=== PATIENT | female | born 1950 | race Caucasian/White ===

== ENCOUNTER → 2017-09-17 | Outpatient (CLI) | payer OTHER ==
[~2017-09-17] MED LIST: ALDACTONE25 MG PO; ALLERGY MEDICAT25 MG PO; AMPYRA10 MG PO; APAP500 PO; ARICEPT 5 MG TAB5 MG PO; CEPACOL SORE T1 EAC7 MM; DEXEDRINE10 MG PO; DIFLUCAN100 MG PO; EFFEXOR XR150 MG PO; EFFEXOR XR75 MG PO; KEPPRA 500 MG500 M1 PO; LEVOTHYROXIN0.075 MG PO; LIORESAL 10 MG10 MG PO; LOSARTAN POTAS100 MG PO; RECLAST 55 MG/1002 IVPB; VENLAFAXIN75 MG/1 T2 PO; ZOCOR20 MG PO; ZOSYN 3.373.375 GM/1 IV; ZOSYN 4.5 GRAM4.5 GM IV
== END ==
LOC: HYPER 06:42
DX: L89.893 Pressure ulcer of other site, stage 3 (principal); L89.522 Pressure ulcer of left ankle, stage 2; L89.610 Pressure ulcer of right heel, unstageable; I10 Essential (primary) hypertension; G35 Multiple sclerosis; M81.0 Age-related osteoporosis without current pathological fracture; F32.9 Major depressive disorder, single episode, unspecified; Z87.891 Personal history of nicotine dependence; Z72.89 Other problems related to lifestyle

== ENCOUNTER → 2017-10-08 | Outpatient (CLI) | payer OTHER | LOC: HYPER 06:41 | DX: L89.893 Pressure ulcer of other site, stage 3 (principal); L89.610 Pressure ulcer of right heel, unstageable; G35 Multiple sclerosis; I10 Essential (primary) hypertension; E66.9 Obesity, unspecified; M81.0 Age-related osteoporosis without current pathological fracture; F32.9 Major depressive disorder, single episode, unspecified; Z87.891 Personal history of nicotine dependence; Z72.89 Other problems related to lifestyle; Z68.24 Body mass index [BMI] 24.0-24.9, adult ==

== ENCOUNTER → 2017-11-12 | Outpatient (CLI) | payer OTHER | LOC: HYPER 11-05 16:43 | DX: L89.522 Pressure ulcer of left ankle, stage 2 (principal); L89.610 Pressure ulcer of right heel, unstageable; G35 Multiple sclerosis; I10 Essential (primary) hypertension; F32.9 Major depressive disorder, single episode, unspecified; E66.9 Obesity, unspecified; Z68.24 Body mass index [BMI] 24.0-24.9, adult; Z87.891 Personal history of nicotine dependence; Z72.89 Other problems related to lifestyle ==

== ENCOUNTER → 2017-12-10 | Outpatient (CLI) | payer OTHER ==
[~2017-12-10] MED LIST changes: -DIFLUCAN100 MG PO; -KEPPRA 500 MG500 M1 PO; -ZOSYN 3.373.375 GM/1 IV; -ZOSYN 4.5 GRAM4.5 GM IV
== END ==
LOC: HYPER 06:43
DX: L89.313 Pressure ulcer of right buttock, stage 3 (principal); L89.522 Pressure ulcer of left ankle, stage 2; L89.610 Pressure ulcer of right heel, unstageable; I10 Essential (primary) hypertension; F32.9 Major depressive disorder, single episode, unspecified; E66.9 Obesity, unspecified; Z68.24 Body mass index [BMI] 24.0-24.9, adult; Z87.891 Personal history of nicotine dependence

== ENCOUNTER → 2018-01-07 | Outpatient (CLI) | payer OTHER | LOC: HYPER 06:55 | DX: L89.313 Pressure ulcer of right buttock, stage 3 (principal); L89.521 Pressure ulcer of left ankle, stage 1; I10 Essential (primary) hypertension; E66.9 Obesity, unspecified; M81.0 Age-related osteoporosis without current pathological fracture; G35 Multiple sclerosis; F32.9 Major depressive disorder, single episode, unspecified; Z87.891 Personal history of nicotine dependence; Z68.24 Body mass index [BMI] 24.0-24.9, adult ==

== ENCOUNTER → 2018-02-26 | Outpatient (CLI) | payer OTHER | LOC: HYPER 06:50 | DX: L89.523 Pressure ulcer of left ankle, stage 3 (principal); L89.313 Pressure ulcer of right buttock, stage 3; E66.9 Obesity, unspecified; M81.0 Age-related osteoporosis without current pathological fracture; G35 Multiple sclerosis; F32.9 Major depressive disorder, single episode, unspecified; Z87.891 Personal history of nicotine dependence; Z68.24 Body mass index [BMI] 24.0-24.9, adult ==

== ENCOUNTER → 2018-03-26 | Outpatient (CLI) | payer OTHER | LOC: HYPER 06:40 | DX: L89.323 Pressure ulcer of left buttock, stage 3 (principal); L89.523 Pressure ulcer of left ankle, stage 3; I10 Essential (primary) hypertension; G35 Multiple sclerosis; E66.9 Obesity, unspecified; M81.0 Age-related osteoporosis without current pathological fracture; F32.9 Major depressive disorder, single episode, unspecified; Z87.891 Personal history of nicotine dependence; Z68.24 Body mass index [BMI] 24.0-24.9, adult ==

== ENCOUNTER → 2018-04-14 | Outpatient (CLI) | payer OTHER | LOC: HYPER 06:36 | DX: L89.523 Pressure ulcer of left ankle, stage 3 (principal); L89.323 Pressure ulcer of left buttock, stage 3; L89.152 Pressure ulcer of sacral region, stage 2; I10 Essential (primary) hypertension; G35 Multiple sclerosis; E66.9 Obesity, unspecified; M81.0 Age-related osteoporosis without current pathological fracture; F32.9 Major depressive disorder, single episode, unspecified; Z68.24 Body mass index [BMI] 24.0-24.9, adult; Z87.891 Personal history of nicotine dependence ==

== ENCOUNTER → 2018-06-03 | Outpatient (CLI) | payer OTHER ==
[~2018-06-03] MED LIST changes: +DIFLUCAN100 MG PO; +KEPPRA 500 MG500 M1 PO; +ZOSYN 3.373.375 GM/1 IV; +ZOSYN 4.5 GRAM4.5 GM IV
[2018-06-03 16:40] LABS: ABSOLUTE NEUTROPHILS 13.5 thou/uL (1.4-8.2); BASOPHILS 0.7 % (0.0-2.0); EOSINOPHILS 3.5 % (0.0-3.0); HEMATOCRIT 27.2 % (37.0-47.0); HEMOGLOBIN 9.3 gm/dL (12.0-15.0); MCH 32.7 pg (26.0-34.0); MCHC 34.4 g/dL (28.0-37.0); MONOCYTES 7.4 % (1.0-8.0); PLATELET COUNT 674 thou/uL (150-400); POLYS 82.4 % (36.0-66.0); RBC 2.86 mil/uL (4.20-5.00); RDW 13.7 % (10.5-14.5); WBC 16.4 thou/uL (4.0-11.0)
[2018-06-03 16:53] LABS: ALBUMIN 2.3 g/dL (3.4-5.0); CALCIUM 9.4 mg/dL (8.5-10.1); CREATININE 0.6 mg/dL (0.6-1.0); POTASSIUM 3.8 mmol/L (3.5-5.1); TOTAL BILIRUBIN 0.3 mg/dL (<0.1-1.0); TOTAL PROTEIN 7.6 g/dL (6.4-8.2)
== END ==
LOC: HYPER 00:25
PROVIDERS: Specialist
DX: L89.523 Pressure ulcer of left ankle, stage 3 (principal); L89.623 Pressure ulcer of left heel, stage 3; L89.324 Pressure ulcer of left buttock, stage 4; L89.893 Pressure ulcer of other site, stage 3; R21 Rash and other nonspecific skin eruption; B37.2 Candidiasis of skin and nail; E66.9 Obesity, unspecified; G35 Multiple sclerosis; G62.9 Polyneuropathy, unspecified; I10 Essential (primary) hypertension; M81.0 Age-related osteoporosis without current pathological fracture; F32.9 Major depressive disorder, single episode, unspecified; Z87.891 Personal history of nicotine dependence; Z68.24 Body mass index [BMI] 24.0-24.9, adult

== ENCOUNTER → 2018-06-10 | Outpatient (CLI) | payer OTHER ==
[2018-06-10 13:24] LABS: CREATININE 0.6 mg/dL (0.6-1.0)
== END ==
LOC: CAT 10:46
PROVIDERS: Emergency Medicine
DX: L89.324 Pressure ulcer of left buttock, stage 4 (principal); R21 Rash and other nonspecific skin eruption; B37.2 Candidiasis of skin and nail; L53.9 Erythematous condition, unspecified; R60.9 Edema, unspecified

== ENCOUNTER → 2018-06-12 | Outpatient (CLI) | payer OTHER ==
--- NOTE | ~2018-06-12 | HC ---
[facility] [place] [address] CONSULTATION Name: HELDER CORDOVA Room #: REG [facility].#: [id number] Admission: 06/12/18 Attend Phys: Oj Guido MD Discharge: Date of : 54 Report #: [id number] THIS REPORT FOR: //name// CC: Job Guido DATE OF SERVICE: 06/12/2018 REASON FOR CONSULTATION: Evaluation of left ischial wound infection with soft tissue abscess. Treatment includes Zosyn 4.5 grams IV q. 8 hours. HISTORY OF PRESENT ILLNESS: The patient continues with a wound VAC to her left ischial wound. She remains at home with home health. She has an upper extremity PICC, which is functioning well. No fever, chills or sweats. Her colostomy is functional. Her suprapubic catheter is functional. Her PEG tube is functional. REVIEW OF SYSTEMS: Denies any cough or sputum production. No chest pain. Remains alert with no new neurologic issues. PHYSICAL EXAMINATION: VITAL SIGNS: Afebrile and hemodynamically stable. Alert and cooperative. IV site unremarkable with no drainage. ABDOMEN: Soft. She does have reflux spasms. Ostomies and tubing site were normal. SKIN: Left ischial wound was extensive, but had reasonable granulation tissue formation and no purulent or odorous drainage. No surrounding cellulitis. Left lower leg wound was dressed and dry. LABORATORY STUDIES: Sodium 137, potassium 4, creatinine 0.6. Liver function test normal with an alkaline phosphatase of 244. Sedimentation rate 125 from earlier in the week. Her hemoglobin is 9.5, WBC 9.5, platelet count 651. IMPRESSION AND PLAN: Advanced multiple sclerosis with pressure wound to her left ischium that developed abscess. She has tolerated her medications reasonably well up to this point. Her sedimentation rate remains elevated, although her white count has normalized. She seems to be making some progress with ingrowth of tissue involving the wound. RECOMMENDATION: We will continue to follow her laboratory studies on a weekly basis. She will continue offloading. She will continue with wound VAC dressing changes. We will monitor her laboratory studies and make appropriate [address] [address] CONSULTATION Name: HELDER CORDOVA [id number] Admission: 06/12/18 Attend Phys: Oj Guido MD Discharge: Date of : 54 Report #: [id number] adjustments if necessary. We will reevaluate within 2 weeks at the time of her next wound care evaluation. <ELECTRONICALLY SIGNED> By: Job Pack MD 06/20/18 1337 [id number] [id number] Job Pack MD /nt
[2018-06-12 11:17] LABS: ALBUMIN 2.6 g/dL (3.4-5.0); CALCIUM 9.7 mg/dL (8.5-10.1); CREATININE 0.6 mg/dL (0.6-1.0); TOTAL BILIRUBIN 0.2 mg/dL (<0.1-1.0)
== END ==
LOC: HYPER 01:11
PROVIDERS: Specialist
DX: L89.324 Pressure ulcer of left buttock, stage 4 (principal); L89.623 Pressure ulcer of left heel, stage 3; L89.523 Pressure ulcer of left ankle, stage 3; I10 Essential (primary) hypertension; E66.9 Obesity, unspecified; M81.0 Age-related osteoporosis without current pathological fracture; G35 Multiple sclerosis; R21 Rash and other nonspecific skin eruption; B37.2 Candidiasis of skin and nail; F32.9 Major depressive disorder, single episode, unspecified; Z87.891 Personal history of nicotine dependence; Z68.24 Body mass index [BMI] 24.0-24.9, adult

== ENCOUNTER → 2018-07-09 | Outpatient (CLI) | payer OTHER ==
[2018-07-09 11:10] LABS: HEMATOCRIT 26.6 % (37.0-47.0); HEMOGLOBIN 9.3 gm/dL (12.0-15.0); MCH 32.4 pg (26.0-34.0); MCV 92.7 fL (80.0-100.0); RBC 2.88 mil/uL (4.20-5.00); RDW 14.9 % (10.5-14.5); WBC 6.3 thou/uL (4.0-11.0)
[2018-07-09 11:27] LABS: ALBUMIN 2.4 g/dL (3.4-5.0); CALCIUM 9.5 mg/dL (8.5-10.1); CREATININE 0.5 mg/dL (0.6-1.0); POTASSIUM 4.1 mmol/L (3.5-5.1); TOTAL BILIRUBIN 0.2 mg/dL (<0.1-1.0); TOTAL PROTEIN 7.2 g/dL (6.4-8.2)
== END ==
LOC: HYPER 00:52
PROVIDERS: Specialist
DX: L89.623 Pressure ulcer of left heel, stage 3 (principal); L89.523 Pressure ulcer of left ankle, stage 3; L89.324 Pressure ulcer of left buttock, stage 4; L84 Corns and callosities; G35 Multiple sclerosis; B37.2 Candidiasis of skin and nail; I10 Essential (primary) hypertension; E66.9 Obesity, unspecified; M81.0 Age-related osteoporosis without current pathological fracture; F32.9 Major depressive disorder, single episode, unspecified; Z87.891 Personal history of nicotine dependence

== ENCOUNTER 2018-07-18 13:16 | Inpatient (IN) | payer OTHER ==
[~2018-07-18] VITALS: Ht 165.1 cm; Wt 77.1 kg
--- NOTE | ~2018-07-18 | O ---
[facility] [place] [address] [place] [address] OPERATIVE REPORT Name: HELDER CORDOVA Room #: 424-P [facility] IN ..#: [id number] Admission: 07/18/18 Attend Phys: Maverick Bello MD Discharge: 07/24/18 Date of : 54 Report #: [id number] THIS REPORT FOR: //name// CC: Corey Bello DATE OF SERVICE: 07/21/2018 SURGEON: Waldo Lindsey MD. BUSINESS LIAISON MANAGER: CAROLINA Arredondo. PREOPERATIVE DIAGNOSES: 1. Prolapsed loop transverse colostomy. 2. 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 POSTOPERATIVE DIAGNOSES: 1. Prolapsed loop transverse colostomy (prolapsed distal aspect). 2. 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 PROCEDURE: Colostomy revision with segmental colectomy and end-transverse colostomy. ANESTHESIA: General endotracheal anesthesia and local anesthetic. ESTIMATED BLOOD LOSS: 25 mL. SPECIMEN: 1. Prolapsed distal stoma. 2. Segment of transverse colon. COMPLICATIONS: None appreciated. INDICATIONS FOR PROCEDURE: This is a 67-year-old female patient with a history of multiple sclerosis from which she is paraplegic. She underwent a diverting loop transverse colostomy on 05/19/2018 to optimize the healing environment for a large left ischial tuberosity decubitus ulcer. The stoma had been functioning well; however, it prolapsed several days prior to her admission with progressive worsening. She had an increase in pain. She was found to have an elevated white blood cell count and underwent a CT of the abdomen and pelvis, which showed no intra-abdominal process. The stoma has been putting out a watery output with significant prolapse of which it was difficult to ascertain whether the prolapsed segment was proximal or distal. The patient presents now for colostomy revision. OPERATIVE FINDINGS: The prolapsed segment was the distal aspect of the loop [facility] [address] [place] [address] OPERATIVE REPORT Name: HELDER CORDVOA Room #: 424-P [facility] IN [facility].#: [id number] Admission: 07/18/18 Attend Phys: Maverick Bello MD Discharge: 07/24/18 Date of : 54 Report #: [id number] colostomy. This was substantially engorged and edematous with sloughing necrosis on the mucosal surface. After removing this, I was able to identify this to be the distal most aspect of the stoma. Proximally, the transverse colon was seen to have omentum. Small bowel was followed to the ileocecal valve, connected to the proximal segment of colon. In addition, soft stool was present within the divided colon. The more distal aspect showed no stool or stool staining of the mucosa. An additional segment of transverse colon was resected to decrease the risk for prolapse of the stoma. After maturing the stoma, the stoma was palpably patent beyond the fascial level. The fascial opening was quite large and required placement of a running suture to tighten the opening to help decrease the risk for significant parastomal hernia. At the conclusion of the operation, sponge, needle, and instrument counts were correct. DESCRIPTION OF PROCEDURE IN DETAIL: After the risks, benefits and expectations of the operation were discussed in detail with the patient and her , informed consent was obtained. The patient was identified in the preoperative holding area. She has been receiving scheduled IV antibiotics. She was taken to the operating room. She was placed in the supine position. SCDs were placed on the patient's bilateral lower extremities and pneumatic compression was initiated. The patient was then given IV sedation and she was intubated without incident. Her abdomen was prepped and draped in the standard sterile fashion. A time-out was performed to identify the correct patient and procedure. Local anesthetic was infiltrated into the skin and subcutaneous tissue around the stoma. A sharp #10 blade scalpel was used to make a circular incision with a 1-mm rim of skin around the stoma. Dissection was then carried out with electrocautery to dissect along the stoma and circumferentially freed the stoma from the fascia. After doing so, I was able to elevate the entire colostomy. The prolapsed segment was stapled off in an area where it was not prolapsed. The more proximal colon was also stapled off. A black nylon suture was placed on the distal staple line and a blue PDS suture on the proximal staple line. The abdomen was then explored through the circular fascial opening. Small bowel was completely eviscerated and run distally to the ileocecal valve, which was connected to what was thought to be the proximal colon. The bowel was replaced within the abdominal cavity. The nylon suture was taken off the distal colon staple line. The distal colon was then placed within the abdominal cavity. The stomal opening at the fascial level was then partially closed with a running 0 PDS suture to tighten the fascia around the stoma without causing constriction. An additional segment of transverse colon was stapled off to decrease the risk for a prolapse of the end colostomy. After ensuring that the sponge, needle and instrument counts were correct, the staple line was excised. The stoma was matured with interrupted Anna-type 3-0 Vicryl sutures at the 12, 3, 6, and 9 o'clock positions. A running 3-0 Vicryl suture was used to finish maturing the colostomy in short runs between the sutures. The stoma was palpably patent and putting out soft stool after its creation. The skin was [facility] [address] [place] [address] OPERATIVE REPORT Name: HELDER CORDOVA Room #: 424-P [facility] IN .R.#: [id number] Admission: 07/18/18 Attend Phys: Maverick Bello MD Discharge: 07/24/18 Date of : 54 Report #: [id number] cleansed and a 2-piece stoma appliance was placed. The patient tolerated the procedure well. She was awakened, extubated, and taken to recovery room in stable condition with no apparent intraoperative complications. <ELECTRONICALLY SIGNED> By: Waldo Lindsey MD, FACS 07/25/18 0946 1520 1555 Waldo Lindsey MD, FACS /nt
--- NOTE | ~2018-07-18 | PATH ---
[facility] [place] [address] [place] [address] PATHOLOGY RPT PROCEDURE Name: BEE CORDOVA MINA Room #: 424-P [facility] IN M.R.#: [id number] Admission: 07/18/18 Date of : 54 Discharge: 07/24/18 Report #: [id number] Path Case #: [id number] [facility] Accession Number: [id number] . 01 Material submitted: . PART A: DISTAL PROLAPSED COLOSTOMY STOMA PART B: PROXIMAL COLON . 01 Clinical history: . Prolapse colostomy stoma . 02 Diagnosis: A. Distal prolapsed colostomy stoma, removal: - Ulceration and marked acute inflammation extending into underlying tissue, history of prolapsed colostomy stoma. - Negative for dysplasia or malignancy. - Omentum with reactive changes. . B. Large intestine, proximal colon, resection: - Reactive changes. - Negative for dysplasia or malignancy. - Margins viable and unremarkable. - Omentum showing reactive changes. . (IUV:mml; 07/23/18) QLM/07/23/2018 . 02 Electronically signed: . Nanda Aguilar MD, Pathologist NPI- [id number] . 01 Gross description: . A. The specimen is received in formalin, labeled "Bee Cordova, distal prolapsed colostomy stoma". Received is a segment of bowel measuring 18.6 cm in length and ranges in diameter from 2.8 to 6.6 cm. One margin is opened and the opposite margin has a large amount of exposed light dunlpa to light brown mucosa with overlying exudate. There is a moderate amount of attached omentum measuring 8.6 x 4.2 x 2.5 cm. Opening the specimen reveals pink-dunlap to pink-burk mucosa. No distinct nodules or lesions are noted grossly. Sectioning through the attached omentum reveals yellow-dunlap, lobulated cut surfaces with no grossly distinct nodules or lesions. The specimen is submitted representatively as follows: . A1 underwriting account representative sections from opened margin A2 underwriting account representative section from opposite opening (possible stoma) A3 underwriting account representative sections from exposed mucosa with overlying exudate A4 underwriting account representative [place] [address] PATHOLOGY RPT PROCEDURE Name: BEE CORDOVA Room #: 424-P [facility] IN M.R.#: [id number] Admission: 07/18/18 Date of : 54 Discharge: 07/24/18 Report #: [id number] Path Case #: [id number] . Gross photographs are taken. . B. The specimen is received in formalin, labeled "Bee Cordova, proximal colon". Received is a segment of colon measuring 6.6 cm in length by 4.3 cm in diameter area both margins are stapled closed and a suture is present at one margin, however, orientation is not provided. The serosal surface is burk-dunlap in appearance. The attached pericolic fat measures up to 2.2 cm in thickness. There is a moderate amount of attached omentum measuring 6.6 x 3.5 x 1.4 cm in greatest dimensions. The specimen is opened along the antimesenteric line to reveal light dunlap mucosa with minimal architectural folding. No distinct nodules or lesions are noted grossly. Sectioning through the attached pericolic fat reveals no readily identifiable lymph nodes. Sectioning through the attached omentum reveals yellow-dunlap, lobulated cut surfaces with no grossly distinct nodules or lesions. The specimen is submitted representatively as follows: . B1 stapled margin B2 opposite margin with suture B3 cross-sections of mucosa B4 underwriting account representative sections of omentum. (CAA; 07/22/2018) QAC/QAC . 02 Pathologist provided ICD-10: K94.03, K63.9 . 02 CPT . 620446, 419134 Specimen Comment: A courtesy copy of this report has been sent to Specimen Comment: [phone], , . Specimen Comment: Report sent to ,DR KAUR / DR STARK Specimen Comment: A duplicate report has been generated due to demographic updates. Performed at: [address], [place] [id number] MD Cameron Dalal MD Phone: [phone] Performed at: [address] [id number] MD Nanda Aguilar MD Phone: [phone]
--- NOTE | ~2018-07-18 | HC ---
[facility] [address] [place] [address] CONSULTATION Name: HELDER CORDOVA Room #: 424-P ADM IN M.R.#: [id number] Admission: 07/18/18 Attend Phys: Maverick Bello MD Discharge: Date of : 54 Report #: [id number] THIS REPORT FOR: //name// CC: Corey Bello DATE OF SERVICE: 07/22/2018 REASON FOR CONSULTATION: I was asked to evaluate regarding leukocytosis, postop colostomy revision. HISTORY OF PRESENT ILLNESS: The patient was a 67-year-old with advanced MS, who was bed to wheelchair bound. She developed chronic ulcer to her left ischium, which required surgical debridement approximately 2 months ago. She completed a prolonged course of IV antibiotic therapy and was on Augmentin when she had difficulties with her colostomy. She had evidence of prolapse. This required revision on 07/21/2018. She underwent segmental colectomy and end transverse colostomy. No intraoperative complications were noted. Postoperatively, has had temperature up to 100 degrees. No cough or sputum production. No nausea or vomiting. Her colostomy has been putting out small amount of thin stool. Her PEG tube has been functioning. She has an indwelling Atkins catheter. No rashes. She has a wound VAC to her sacrum, which is functioning well. I discussed with wound care service this evening. No purulent drainage. They were happy with the wound base. No change in her left heel and lateral ankle wounds. Small amount of drainage from them. She has not followed up with Orthopedic Surgery regarding her fracture repair. REVIEW OF SYSTEMS: Ten point review otherwise negative other than what is described above. ALLERGIES: TAPE. MEDICATIONS: As noted on her MAR, now including Zosyn. PAST MEDICAL HISTORY: Multiple sclerosis, bladder stones, suprapubic catheter, tonsillectomy, hypertension, depression, hypothyroidism, left leg fracture with ORIF 02/2018, seizure disorder, urinary tract infections. FAMILY HISTORY: Noncontributory. SOCIAL HISTORY: Past smoker, no significant alcohol intake. PHYSICAL EXAMINATION: VITAL SIGNS: Afebrile and hemodynamically stable. GENERAL: She was alert and cooperative. She had quadriplegia. She appeared her stated age. [facility] [address] [place] [address] CONSULTATION Name: HELDER CORDOVA Room #: 424-[facility] IN .R.#: [id number] Admission: 07/18/18 Attend Phys: Maverick Bello MD Discharge: Date of : 54 Report #: [id number] HEENT: Eyes, no conjunctival injection or sclerae icterus. Mouth without lesion or mucositis. NECK: Supple, with no thyromegaly or mass or adenopathy. No peripheral adenopathy palpable. LUNGS: Clear anteriorly and laterally. HEART: Regular without murmur. ABDOMEN: Soft with mild general tenderness. Colostomy site was unremarkable. PEG site without drainage. Suprapubic catheter site without drainage. Wound VAC to her ischium. EXTREMITIES: Left lower leg lateral ankle wound with a small amount of drainage. No surrounding cellulitis. Her heel wound was with a clean base. Minimal drainage. NEUROLOGIC: Mood was normal. LABORATORY STUDIES: Sodium 140, potassium 3.3, bicarbonate 24, creatinine 0.5. Hemoglobin 9.3, WBC 18.2, platelet count is 465,000. CT scan of the abdomen and pelvis showed evidence of left ischial osteomyelitis, gallbladder wall thickening, umbilical hernia with mild to moderate transverse colon obstruction noted. This study was done preoperatively. IMPRESSION: Colostomy prolapse. Postoperative day #1, revision with low-grade fever and leukocytosis. Left ischial wound, status post debridement, now 2 months out. Advanced multiple sclerosis. I am suspecting low grade fever, most likely related to her surgical intervention, possible atelectasis. PLAN: Would recommend continuing Zosyn as dosed. Check chest x-ray, urinalysis. Follow up CBC and chemistry in the a.m. Continue current wound care. Follow stool output. The patient is to have a followup orthopedic evaluation this month regarding her left leg. <ELECTRONICALLY SIGNED> By: Job Pack MD 07/23/18 2150 1803 0149 Job Pack MD /nt
--- NOTE | ~2018-07-18 | HC ---
[facility] [place] [address] CONSULTATION Name: HELDER CORDOVA Room #: 424-P ADM IN M.R.#: [id number] Admission: 07/18/18 Attend Phys: Maverick Bello MD Discharge: Date of : 54 Report #: [id number] THIS REPORT FOR: //name// CC: Corey Bello DATE OF SERVICE: 07/20/2018 WOUND CARE CONSULTATION REASON FOR CONSULTATION: The patient with multiple sclerosis and paraplegia, admitted for prolapse of transverse loop colostomy. We are consulted for care of her left ischial stage 4 pressure ulcer with wound VAC, also stage 4 pressure ulcer of left heel and stage 3 pressure ulcer of the sacrum. HISTORY OF PRESENT ILLNESS: The patient is a 67-year-old woman, well known to our wound care team from previous care. This unfortunate woman with multiple sclerosis has essential paraplegia, debility and immobility and developed a significant left ischial stage 4 pressure ulcer. This has been previously debrided and treated with a wound VAC. She had diverting transverse loop colostomy. She was admitted to the Emergency Room on Saturday for significant colostomy prolapse with protrusion of a large amount of colon into the bag, although the bowel was viable. We are consulted for care of her left ischial wound, also a sacral pressure sore and left heel stage 4 pressure ulcer. Note, the patient was fully able to reduce the colostomy prior, but recently now, large amount of prolapse is out. The patient has been seen in the hospital by general surgeon, Dr. Rodrigues, and revision of her prolapsed transverse loop colostomy is planned for tomorrow, 07/21/2018. MEDICATIONS: Include Effexor, Keppra, ____, Tylenol, Benadryl, losartan, levothyroxine, spironolactone, donepezil, simvastatin, baclofen, piperacillin in the past. She is also on Lovenox. PHYSICAL EXAMINATION: GENERAL: Shows a chronically ill-appearing woman, paraplegia, alert, pleasant and conversant. HEENT: Mucous membranes are moist. EXTREMITIES: Some contractures of the upper extremities. ABDOMEN: Exam shows an upper abdomen colostomy with significant prolapse, with approximately over 1 foot of colon prolapsed into the back. Presumably, this a transverse loop colostomy. The bowel and the bag are pink and viable and the colostomy is functioning. The patient also has a PEG tube in the left upper quadrant and a suprapubic catheter. SKIN: Examination of the patient's back shows a left ischial stage 4 pressure ulcer. Wound VAC is removed. Wound measures approximately 4 cm x 5 cm x 5 cm deep, with palpable bone at the base. Wound has palpable smooth edges with good [address] [address] CONSULTATION Name: HELDER CORDOVA Room #: 424-P ADM IN M.R.#: [id number] Admission: 07/18/18 Attend Phys: Maverick Bello MD Discharge: Date of : 54 Report #: [id number] granulation. There is presently 1.5 x 1.5 cm superficial stage 3 sacral pressure ulcer with minimal exudate. Examination of the lower extremities show paraplegia, muscle wasting and a left heel stage 4 pressure ulcer measuring 2 x 2 cm, which is well granulating. PLAN: Aquacel Ag and foam border to the wound of the left heel with offloading foam boot; we will consider Elise. Aquacel Ag foam border to her sacral wound, offloading with low air loss mattress. We will resume the patient's wound VAC; however, if she may wish to debride her left ischial wound in the OR tomorrow, we will thereafter replace the wound VAC. Continue to maximize feeding through PEG tube. Surgical repair of her prolapsed colostomy tomorrow and wound care team with wound care nurse, Jackelyn Hernandez, take care of her wound while in the hospital. <ELECTRONICALLY SIGNED> By: Everton Orellana MD 07/22/18 0830 1508 0025 Everton Orellana MD /nt
[2018-07-18 13:22] VITALS: BP 105/78
[2018-07-18 14:55] LABS: HEMATOCRIT 32.9 % (37.0-47.0); MCH 30.9 pg (26.0-34.0); MCHC 33.4 g/dL (28.0-37.0); MCV 92.4 fL (80.0-100.0); PLATELET COUNT 542 thou/uL (150-400); RBC 3.56 mil/uL (4.20-5.00); RDW 16.1 % (10.5-14.5); WBC 12.3 thou/uL (4.0-11.0)
[2018-07-18 14:58] LABS: CALCIUM 9.7 mg/dL (8.5-10.1); CREATININE 0.5 mg/dL (0.6-1.0); POTASSIUM 3.8 mmol/L (3.5-5.1)
[2018-07-18 15:04] LABS: ALBUMIN 2.7 g/dL (3.4-5.0); DIRECT BILIRUBIN 0.1 mg/dL (<0.1-0.3); TOTAL BILIRUBIN 0.3 mg/dL (<0.1-1.0); TOTAL PROTEIN 7.7 g/dL (6.4-8.2)
[2018-07-18 15:39] LABS: ABSOLUTE NEUTROPHILS 10.2 thou/uL (1.4-8.2)
[2018-07-18 15:40] LABS: ANISOCYTOSIS 1+; HYPOCHROMASIA SLIGHT; POLYCHROMASIA OCCASIONAL
[2018-07-18 16:33] VITALS: BP 134/441
[2018-07-18 19:30] VITALS: BP 134/71
[2018-07-19 03:15] VITALS: BP 126/59
[2018-07-19 05:44] LABS: HEMATOCRIT 30.4 % (37.0-47.0); HEMOGLOBIN 10.2 gm/dL (12.0-15.0); MCH 31.2 pg (26.0-34.0); MCHC 33.6 g/dL (28.0-37.0); MCV 92.8 fL (80.0-100.0); RBC 3.28 mil/uL (4.20-5.00); RDW 15.9 % (10.5-14.5); WBC 12.1 thou/uL (4.0-11.0)
[2018-07-19 05:56] LABS: CALCIUM 8.7 mg/dL (8.5-10.1); CREATININE 0.4 mg/dL (0.6-1.0); POTASSIUM 3.5 mmol/L (3.5-5.1)
[2018-07-19 08:06] VITALS: BP 144/66
[2018-07-19 17:14] VITALS: BP 130/62
[2018-07-19 20:15] VITALS: BP 121/65
[2018-07-20] VITALS: BP 131/68
[2018-07-20 04:47] VITALS: BP 128/62
[2018-07-20 05:45] LABS: HEMATOCRIT 28.5 % (37.0-47.0); HEMOGLOBIN 9.6 gm/dL (12.0-15.0); MCH 31.3 pg (26.0-34.0); MCHC 33.8 g/dL (28.0-37.0); MCV 92.7 fL (80.0-100.0); RBC 3.07 mil/uL (4.20-5.00); RDW 15.9 % (10.5-14.5); WBC 13.4 thou/uL (4.0-11.0)
[2018-07-20 05:53] LABS: CALCIUM 8.3 mg/dL (8.5-10.1); CREATININE 0.4 mg/dL (0.6-1.0); POTASSIUM 3.4 mmol/L (3.5-5.1)
[2018-07-20 07:44] VITALS: BP 115/62
[2018-07-20 16:27] VITALS: BP 114/54
[2018-07-20 20:03] VITALS: BP 117/52
[2018-07-21] VITALS: BP 131/51
[2018-07-21 04:43] VITALS: BP 117/72
[2018-07-21 08:14] VITALS: BP 128/65
[2018-07-21 16:39] VITALS: BP 116/58
[2018-07-21 20:22] VITALS: BP 130/46
[2018-07-22 04:46] VITALS: BP 112/59
[2018-07-22 06:32] LABS: HEMATOCRIT 27.8 % (37.0-47.0); HEMOGLOBIN 9.3 gm/dL (12.0-15.0); MCH 31.5 pg (26.0-34.0); MCHC 33.5 g/dL (28.0-37.0); RBC 2.95 mil/uL (4.20-5.00); RDW 16.3 % (10.5-14.5); WBC 18.2 thou/uL (4.0-11.0)
[2018-07-22 06:39] LABS: CALCIUM 7.6 mg/dL (8.5-10.1); CREATININE 0.5 mg/dL (0.6-1.0); POTASSIUM 3.3 mmol/L (3.5-5.1)
[2018-07-22 07:46] VITALS: BP 125/62
[2018-07-22 16:29] VITALS: BP 102/51
[2018-07-22 19:49] VITALS: BP 91/45
[2018-07-23 04:18] VITALS: BP 115/38
[2018-07-23 06:44] LABS: HEMATOCRIT 24.4 % (37.0-47.0); HEMOGLOBIN 8.2 gm/dL (12.0-15.0); MCH 31.2 pg (26.0-34.0); MCHC 33.5 g/dL (28.0-37.0); MCV 93.2 fL (80.0-100.0); RBC 2.62 mil/uL (4.20-5.00); RDW 16.4 % (10.5-14.5); WBC 13.7 thou/uL (4.0-11.0)
[2018-07-23 06:57] LABS: ALBUMIN 1.6 g/dL (3.4-5.0); CALCIUM 7.9 mg/dL (8.5-10.1); CREATININE 0.5 mg/dL (0.6-1.0); POTASSIUM 3.1 mmol/L (3.5-5.1); TOTAL BILIRUBIN 0.3 mg/dL (<0.1-1.0); TOTAL PROTEIN 5.5 g/dL (6.4-8.2)
[2018-07-23 08:00] VITALS: BP 125/51
[2018-07-23 09:36] VITALS: BP 125/51
[2018-07-23 12:20] VITALS: BP 125/51
[2018-07-23 17:45] VITALS: BP 114/49
[2018-07-23 20:40] VITALS: BP 123/65
[2018-07-24 05:33] VITALS: BP 119/64
[2018-07-24 07:25] VITALS: BP 135/72
[2018-07-24 09:29] LABS: HEMATOCRIT 24.5 % (37.0-47.0); HEMOGLOBIN 8.4 gm/dL (12.0-15.0); MCHC 34.2 g/dL (28.0-37.0); MCV 93.7 fL (80.0-100.0); RBC 2.62 mil/uL (4.20-5.00); RDW 16.2 % (10.5-14.5); WBC 12.3 thou/uL (4.0-11.0)
[2018-07-24 09:38] LABS: CALCIUM 8.4 mg/dL (8.5-10.1); CREATININE 0.4 mg/dL (0.6-1.0); MAGNESIUM 1.4 mg/dL (1.8-2.4); POTASSIUM 3.3 mmol/L (3.5-5.1)
[2018-07-24] MEDS ORDERED: AUGMENTIN 875-1 EACH PO (13:30)
[2018-07-24 16:40] VITALS: BP 125/51
== END 2018-07-24 17:56 | disposition home health service (06) | DRG 329 ==
LOC: ER 13:16 → 4E 16:29 → EROBS 16:29 → 4E 19:21
PROVIDERS: Emergency Medicine; Hospitalist; Internal Medicine; Specialist
PROC: 0D1L0Z4 Bypass Transverse Colon to Cutaneous, Open Approach (ICD-10-PCS; principal; 2018-07-21)
PROC: 0DBL0ZZ Excision of Transverse Colon, Open Approach (ICD-10-PCS; 2018-07-21)
DX: K94.03 Colostomy malfunction (principal); A41.9 Sepsis, unspecified organism; L89.523 Pressure ulcer of left ankle, stage 3; J18.9 Pneumonia, unspecified organism; L89.224 Pressure ulcer of left hip, stage 4; L89.623 Pressure ulcer of left heel, stage 3; L89.153 Pressure ulcer of sacral region, stage 3; G82.20 Paraplegia, unspecified; E46 Unspecified protein-calorie malnutrition; J98.11 Atelectasis; E03.9 Hypothyroidism, unspecified; I10 Essential (primary) hypertension; F32.9 Major depressive disorder, single episode, unspecified; G40.909 Epilepsy, unspecified, not intractable, without status epilepticus; D72.829 Elevated white blood cell count, unspecified; G35 Multiple sclerosis; E78.5 Hyperlipidemia, unspecified; M62.84 Sarcopenia; F03.90 Unspecified dementia, unspecified severity, without behavioral disturbance, psychotic disturbance, mood disturbance, and anxiety; E83.42 Hypomagnesemia; E87.6 Hypokalemia; K21.9 Gastro-esophageal reflux disease without esophagitis; Z28.21 Immunization not carried out because of patient refusal; Z87.891 Personal history of nicotine dependence; Z87.81 Personal history of (healed) traumatic fracture; Z68.28 Body mass index [BMI] 28.0-28.9, adult; Z79.899 Other long term (current) drug therapy
CPT/HCPCS: 10183; 10783; 50010; 50093; 50101; 50386; 51708; 51712; 56524; 56525; 56527; 56530; 57092; 57188; 57189; 62110; 62900; 70005

== ENCOUNTER → 2018-07-29 | Outpatient (CLI) | payer OTHER ==
[~2018-07-29] MED LIST changes: +AUGMENTIN 875-1 EACH PO
== END ==
LOC: RAD 16:12
DX: J90 Pleural effusion, not elsewhere classified (principal); J98.11 Atelectasis; R91.8 Other nonspecific abnormal finding of lung field

== ENCOUNTER → 2018-08-13 | Outpatient (CLI) | payer OTHER ==
[2018-08-13 10:07] LABS: HEMATOCRIT 31.8 % (37.0-47.0); HEMOGLOBIN 10.4 gm/dL (12.0-15.0); MCH 29.2 pg (26.0-34.0); MCHC 32.6 g/dL (28.0-37.0); MCV 89.6 fL (80.0-100.0); RBC 3.55 mil/uL (4.20-5.00); RDW 16.2 % (10.5-14.5); WBC 7.4 thou/uL (4.0-11.0)
[2018-08-13 10:20] VITALS: BP 119/53
[2018-08-13 10:22] LABS: ALBUMIN 2.5 g/dL (3.4-5.0); CALCIUM 9.7 mg/dL (8.5-10.1); CREATININE 0.4 mg/dL (0.6-1.0); POTASSIUM 3.7 mmol/L (3.5-5.1); TOTAL BILIRUBIN 0.2 mg/dL (<0.1-1.0); TOTAL PROTEIN 7.5 g/dL (6.4-8.2)
== END ==
LOC: HYPER 07-24 09:07
PROVIDERS: Specialist
DX: L89.623 Pressure ulcer of left heel, stage 3 (principal); L89.523 Pressure ulcer of left ankle, stage 3; L89.324 Pressure ulcer of left buttock, stage 4; L89.153 Pressure ulcer of sacral region, stage 3; L84 Corns and callosities; B37.2 Candidiasis of skin and nail; E66.9 Obesity, unspecified; G35 Multiple sclerosis; G62.9 Polyneuropathy, unspecified; I10 Essential (primary) hypertension; M81.0 Age-related osteoporosis without current pathological fracture; F32.9 Major depressive disorder, single episode, unspecified; Z87.891 Personal history of nicotine dependence
CPT/HCPCS: 91016

== ENCOUNTER → 2018-08-27 | Outpatient (CLI) | payer OTHER | LOC: OPONC 07-29 08:15 → HYPER 00:33 | DX: L89.324 Pressure ulcer of left buttock, stage 4 (principal); L89.623 Pressure ulcer of left heel, stage 3; L89.523 Pressure ulcer of left ankle, stage 3; L89.153 Pressure ulcer of sacral region, stage 3; I10 Essential (primary) hypertension; G35 Multiple sclerosis; E66.9 Obesity, unspecified; M81.0 Age-related osteoporosis without current pathological fracture; B37.2 Candidiasis of skin and nail; F32.9 Major depressive disorder, single episode, unspecified; Z87.891 Personal history of nicotine dependence ==

== ENCOUNTER → 2018-08-27 | Outpatient (CLI) | payer OTHER ==
[2018-08-27 10:20] LABS: HEMOGLOBIN 9.6 gm/dL (12.0-15.0); MCH 27.9 pg (26.0-34.0); MCHC 32.1 g/dL (28.0-37.0); MCV 86.9 fL (80.0-100.0); RBC 3.45 mil/uL (4.20-5.00); RDW 16.5 % (10.5-14.5)
[2018-08-27 10:34] LABS: ALBUMIN 2.6 g/dL (3.4-5.0); CALCIUM 9.1 mg/dL (8.5-10.1); CREATININE 0.4 mg/dL (0.6-1.0); TOTAL BILIRUBIN 0.1 mg/dL (<0.1-1.0); TOTAL PROTEIN 6.6 g/dL (6.4-8.2)
[2018-08-27 11:10] VITALS: BP 104/47
== END ==
LOC: RAD 00:33
PROVIDERS: Specialist
DX: Z12.31 Encounter for screening mammogram for malignant neoplasm of breast (principal); S91.002A Unspecified open wound, left ankle, initial encounter; S91.302A Unspecified open wound, left foot, initial encounter; J98.11 Atelectasis; J18.9 Pneumonia, unspecified organism; K21.9 Gastro-esophageal reflux disease without esophagitis; L02.91 Cutaneous abscess, unspecified; L08.9 Local infection of the skin and subcutaneous tissue, unspecified; X58.XXXA Exposure to other specified factors, initial encounter; Y93.89 Activity, other specified; Y92.89 Other specified places as the place of occurrence of the external cause; Y99.8 Other external cause status
CPT/HCPCS: 91018

== ENCOUNTER → 2018-09-10 | Outpatient (CLI) | payer OTHER ==
[2018-09-10 10:20] VITALS: BP 115/52
[2018-09-10 10:43] LABS: HEMATOCRIT 30.1 % (37.0-47.0); HEMOGLOBIN 9.8 gm/dL (12.0-15.0); MCH 27.5 pg (26.0-34.0); MCHC 32.6 g/dL (28.0-37.0); MCV 84.4 fL (80.0-100.0); RBC 3.57 mil/uL (4.20-5.00); RDW 17.1 % (10.5-14.5)
[2018-09-10 10:57] LABS: ALBUMIN 2.5 g/dL (3.4-5.0); CALCIUM 9.4 mg/dL (8.5-10.1); CREATININE 0.4 mg/dL (0.6-1.0); POTASSIUM 4.1 mmol/L (3.5-5.1); TOTAL BILIRUBIN 0.2 mg/dL (<0.1-1.0)
[2018-09-10 11:09] LABS: TOTAL PROTEIN 7.7 g/dL (6.4-8.2)
[2018-09-10 13:41] LABS: URINE BILIRUBIN NEGATIVE (Negative); URINE BLOOD NEGATIVE (Negative); URINE CLARITY CLOUDY; URINE COLOR YELLOW; URINE GLUCOSE-RANDOM* NEGATIVE (Negative); URINE KETONES NEGATIVE (Negative); URINE NITRITE-REFLEX POSITIVE (Negative); URINE PROTEIN (DIPSTICK) NEGATIVE (Negative); URINE UROBILINOGEN 0.2 E.U./dl (0.2-1.0)
[2018-09-10 13:42] LABS: URINE LEUKOCYTES-REFLEX 2+ (Negative)
[2018-09-10 13:51] LABS: BACTERIA-REFLEX 1-9 Few /HPF (None Seen); CASTS None Seen /LPF (None Seen); CRYSTALS None Seen /LPF (None Seen); SQUAMOUS None Seen /LPF (0-3); URINE RBC 0-2 Rare /HPF (0-2); YEAST-REFLEX Present (None Seen)
--- NOTE | 2018-09-10 16:20 | NUR ---
HERE FOR CLINIC VISIT WITH DR. CHÁVEZ, LABS AND TO SEE WOUND CLINIC. REPORTED THAT PT HAD FEVER SAT 09/06 OF 101 AND 09/07 OF 100 AND DIDN'T LOOK WELL. URINE WAS ALSO REPORTED TO BE DARK IN COLOR. HE PUSHED FLUIDS AND SHE BEGAN TO FEEL AND LOOK BETTER AND URINE CLEARED. HOME HEALTH NURSE SAW PT ON SATURDAY. PT REPORTS FEELING WELL TODAY. DENIES PAIN, DIARRHEA, NEW BLADDER SYMPTOMS, LUNG ISSUES. NO C/O ABD PAIN. DOES HAVE SLIGHTY REDDENED SKIN IN PERINEAL FOLDS. PLACING ANTIFUNGAL OINTMENT IN FOLDS. WOUND TEAM AND DR. CHÁVEZ EVALUATED ALL WOUNDS--COCCYX. L ISHIAL, L ANKLE WELL CHECKING PEG TUBE AND SUPRAPUBIC CATHETER SITES. LFT'S ELEVATED SO US OF GB ORDERED AND OBTAINED WELL CXR AND UA/CULTURE OBTAINED FROM SUPRAPUBIC CATHETER. WOUND CLINIC REDRESSED ALL WOUNDS. COMMUNICATED LAB ORDERS TO PT'S HH NURSE WITH THE [facility], AND FAXED ORDER TO THEIR OFFICE FOR REPEAT CMP SAT AND SATURDAY. XRAY AND LAB REPORTS CALLED TO DR. CHÁVEZ PRIOR TO PT'S DISMISSAL (LONG WAIT FOR RESULTS KEPT PT HERE SO LATE TODAY). OK RECEIVED TO DISMISS AND TO HAVE PT'S CALL IN ON SATURDAY TO REPORT ON HOW PT IS FEELING. PT SCHEDULED TO RETURN TO CLINIC ON 09/24 FOR F/U VISIT WITH DR. CHÁVEZ. WILL NOT SEE WOUND DOC FOR 4 WEEKS. PT SLEPT WHEN NOT DISTURBED. EMPTIED LEG BAG 3 TIMES WITH YELLOW URINE WITH SEDIMENT PRESENT. OSTOMY PRODUCING MUSHY BROWN STOOL. DISMISSED IN STABLE CONDITION PER MOTORIZED WHEELCHAIR, LIFT DEVICE USED FOR TRANSFER.
== END ==
LOC: HYPER 01:11
PROVIDERS: Specialist
DX: L89.623 Pressure ulcer of left heel, stage 3 (principal); L89.324 Pressure ulcer of left buttock, stage 4; L89.153 Pressure ulcer of sacral region, stage 3; L89.523 Pressure ulcer of left ankle, stage 3; G35 Multiple sclerosis; B37.2 Candidiasis of skin and nail; R52 Pain, unspecified
CPT/HCPCS: 91019

== ENCOUNTER → 2018-09-24 | Outpatient (CLI) | payer OTHER ==
[2018-09-24 10:15] VITALS: BP 130/86
[2018-09-24 10:27] LABS: HEMATOCRIT 33.1 % (37.0-47.0); HEMOGLOBIN 10.6 gm/dL (12.0-15.0); MCHC 32.1 g/dL (28.0-37.0); MCV 84.2 fL (80.0-100.0); PLATELET COUNT 595 thou/uL (150-400); RBC 3.93 mil/uL (4.20-5.00); RDW 17.4 % (10.5-14.5); WBC 6.2 thou/uL (4.0-11.0)
[2018-09-24 10:43] LABS: ALBUMIN 2.9 g/dL (3.4-5.0); CALCIUM 9.7 mg/dL (8.5-10.1); CREATININE 0.5 mg/dL (0.6-1.0); TOTAL BILIRUBIN 0.1 mg/dL (<0.1-1.0)
--- NOTE | 2018-09-24 12:40 | NUR ---
PT HERE FOR F/U CLINIC VISIT WITH DR. WILLAM CHÁVEZ AND FOR LABS. REPORTS DOING WELL, NO FURTHER FEVERS NOTED AT HOME. EATING OK, ABD SOFT. PEG TUBE SITE LOOKS GOOD WELL SUPRAPUBIC CATHETER. MUCH LESS REDNESS NOTED IN GROIN FOLDS. REMOVED DRESSINGS FROM COCCYX, L ISCHIAL WOUND AND L ANKLE. DR. CHÁVEZ EVALUATED ALL. [employer] SALES CONSULTANT DRESSED L ISCHIAL WOUND WITH DAKINS AND GAUZE. THESE WOUNDS HAVE BOTH BEEN DRAINING. L ISHCIAL WOUND IS IMPROVING. I REPLACED L ANKLE DRESSINGS WELL. NO OPEN WOUNDS REMAIN IN THIS AREA. PT AND DOING A GREAT JOB WITH CARE AT HOME AND PRESSURE PREVENTION MEASURES IN PLACE. HAS 1/4 STRENGTH DAKINS SOLUTION AND VERBALIZES UNDERSTANDING TO CHANGE ISCHIAL WOUND WITH THIS BID. HOME HEALTH ALSO IN PLACE WITH WOUND CARE NURSE VISITING --. SCHEDULED TO RETURN AGAIN IN 2 WEEKS WHEN SHE WILL SEE BOTH DR. CHÁVEZ AND DR. SAUNDERS. DISMISSED IN STABLE CONDITION. USED LIFT DEVICE AND ASSISTANTS TO GET PT TO CART FOR EXAM AND BACK INTO WHEELCHAIR FOR DISMISSAL.
[2018-09-24 17:54] LABS: ANISOCYTOSIS 2+
[2018-09-24 17:55] LABS: LARGE PLATELETS RARE; POLYCHROMASIA OCCASIONAL
== END ==
LOC: OPONC 03:05
PROVIDERS: Specialist
DX: S71.002D Unspecified open wound, left hip, subsequent encounter (principal); S31.000D Unspecified open wound of lower back and pelvis without penetration into retroperitoneum, subsequent encounter; S91.002D Unspecified open wound, left ankle, subsequent encounter; S91.302D Unspecified open wound, left foot, subsequent encounter; J18.9 Pneumonia, unspecified organism; K21.9 Gastro-esophageal reflux disease without esophagitis; X58.XXXD Exposure to other specified factors, subsequent encounter
CPT/HCPCS: 91018

== ENCOUNTER → 2018-10-06 | Outpatient (CLI) | payer OTHER | LOC: HYPER 06:39 | DX: L89.623 Pressure ulcer of left heel, stage 3 (principal); L89.324 Pressure ulcer of left buttock, stage 4; L89.153 Pressure ulcer of sacral region, stage 3; B37.2 Candidiasis of skin and nail; E66.9 Obesity, unspecified; G35 Multiple sclerosis; I10 Essential (primary) hypertension; M81.0 Age-related osteoporosis without current pathological fracture; F32.9 Major depressive disorder, single episode, unspecified; Z87.891 Personal history of nicotine dependence | CPT/HCPCS: 91016 ==

== ENCOUNTER 2018-10-14 19:05 | Inpatient (IN) | payer OTHER ==
[~2018-10-14] VITALS: Ht 170.2 cm; Wt 74.9 kg
[2018-10-14] VITALS (8 sets, daily range): BP systolic 82–99; BP diastolic 37–59
[2018-10-14 20:08] LABS: URINE BILIRUBIN 1+ (Negative); URINE BLOOD 1+ (Negative); URINE CLARITY CLEAR; URINE COLOR YELLOW; URINE GLUCOSE-RANDOM* NEGATIVE (Negative); URINE KETONES NEGATIVE (Negative); URINE NITRITE-REFLEX NEGATIVE (Negative); URINE PROTEIN (DIPSTICK) TRACE (Negative); URINE SPECIFIC GRAVITY >= 1.030 (1.005-1.035); URINE UROBILINOGEN 0.2 E.U./dl (0.2-1.0)
[2018-10-14 20:11] LABS: ICTOTEST (BILI CONFIRMATORY) Positive (Negative); URINE LEUKOCYTES-REFLEX 1+ (Negative)
[2018-10-14 20:22] LABS: AMORPHOUS URATES Many /LPF (None Seen); CASTS None Seen /LPF (None Seen); SQUAMOUS 0-3 Few /LPF (0-3); TRANSITIONAL EPITHEL CELL 0-3 Few /LPF (None Seen)
[2018-10-14 20:23] LABS: URINE RBC 0-2 Rare /HPF (0-2); URINE WBC-REFLEX 6-15 Few /HPF (0-5)
[2018-10-14 20:26] LABS: HEMATOCRIT 30.8 % (37.0-47.0); MCH 26.2 pg (26.0-34.0); MCHC 32.4 g/dL (28.0-37.0); PLATELET COUNT 417 thou/uL (150-400); RDW 18.2 % (10.5-14.5); WBC 11.3 thou/uL (4.0-11.0)
[2018-10-14 20:32] LABS: CALCIUM 9.8 mg/dL (8.5-10.1); CREATININE 1.3 mg/dL (0.6-1.0); POTASSIUM 4.5 mmol/L (3.5-5.1)
[2018-10-14 20:49] LABS: ABSOLUTE NEUTROPHILS 10.7 thou/uL (1.4-8.2); ANISOCYTOSIS 1+; METAMYELOCYTES 1 %
[2018-10-14 20:50] LABS: POLYCHROMASIA OCCASIONAL
[2018-10-14 20:51] LABS: ALBUMIN 2.4 g/dL (3.4-5.0); DIRECT BILIRUBIN 2.7 mg/dL (<0.1-0.3); TOTAL BILIRUBIN 3.4 mg/dL (<0.1-1.0); TOTAL PROTEIN 8.1 g/dL (6.4-8.2)
[2018-10-14 23:07] LABS: APTT 33.6 Seconds (24.5-32.8); INR 1.1; PROTIME 11.9 Seconds (9.3-11.4)
[2018-10-14 23:18] LABS: BE(vivo) -11.5 mmol/L (-2 to +3); HCO3 13.8 mmol/L (22.0-26.0); PO2 74.7 mmHg (80.0-100.0); sO2 93.8 % (92.0-98.0)
[2018-10-14 23:19] LABS: pH 7.296 (7.360-7.450)
--- NOTE | 2018-10-14 23:30 | NUR ---
PT ARRIVED FROM ER WITH DORY SHAW. ON ARRIVAL, PT WAS ON 15 MCGS OF LEVOPHED. AOX1, CONFUSED. FOLLOW COMMANDS. NO APPARENT PAIN. CONSENTS SIGN FOR DRAINAGE PLACEMENT AND PICC PLACEMENT. PT WENT DOWN TO IR WITH RN AND TECH. WILL PEMAINUE TO MONITOR PT.
[2018-10-15] VITALS (71 sets, daily range): BP systolic 40–270; BP diastolic 13–212
[2018-10-15] MEDS ORDERED: DULOXETINE HCL60 MG PO (01:43)
[2018-10-15 03:10] LABS: APTT 32.5 Seconds (24.5-32.8); FIBRINOGEN 571.4 mg/dL (210-360)
[2018-10-15 05:53] LABS: CALCIUM 8.1 mg/dL (8.5-10.1); CREATININE 1.3 mg/dL (0.6-1.0)
[2018-10-15 05:56] LABS: POTASSIUM 3.5 mmol/L (3.5-5.1)
[2018-10-15 06:31] LABS: MCH 25.6 pg (26.0-34.0); MCHC 31.7 g/dL (28.0-37.0); MCV 80.7 fL (80.0-100.0); RBC 3.09 mil/uL (4.20-5.00); RDW 17.6 % (10.5-14.5); WBC 16.5 thou/uL (4.0-11.0)
[2018-10-15 06:45] LABS: HEMOGLOBIN 7.9 gm/dL (12.0-15.0)
--- NOTE | 2018-10-15 06:47 | NUR ---
PT AOX1, CONFUSED. NO APPARENT PAIN. AFEBRILE. ON LEVOPHED FOR BP SUPPORT. ST ON THE MONITOR. 6L NC, NO APPARENT DISTRESS WHILE AT REST. PT HAS RUQ DRAINAGE BAG FROM IR PROCEDURE. PEG TUBE IN PLACE, COPIOUS AMOUNT OF DRANAIGE FROM AROUND PEG TUBE SITE, FOUL ODOR NOTED. COLOSTOMY IN PLACE, 2 PIECE SYSTEM CHANGED DURING NIGHT. SUPRAPUBIC CATH IN PLACE, MINIMAL OUPUT. WOUND CARE PERFROMED AND PICTURES TAKEN. AT BEDSIDE DURING THE NIGHT. SEPSIS PROTOCOL IMPLEMENTED. WILL CONTINUE TO MONITOR PT.
--- NOTE | 2018-10-15 10:05 | NUR ---
Nutrition: Per rounds PEG is leaking, also acute cholecystitis. Pt's usual regimen is oral diet plus Premier and bolus one can Jevity 1.[address] will follow for timely ability to resume diet and start tube feeds
[2018-10-15 10:54] LABS: CALCIUM 7.5 mg/dL (8.5-10.1); CREATININE 1.2 mg/dL (0.6-1.0)
--- NOTE | 2018-10-15 13:48 | NUR ---
Case opened to follow for dc planning. Pt is currently in the ICU and unable to participate in the cm assessment. Blind Escort visited with the pt's spouse at bedside. He provides 24hr care in their home. The pt has a hx of MS and has been more debilitiated over the past year due to a stg iv sacral ulcer. She has hh for wound care MWF per the [facility]. They have a ramp to enter the home. The pt has a power chair and her bathroom is setup for her. Over the past year she has been bed bound. Her spouse has been trying to get a mahamed lift through [facility] and her neuro's (Dr. Toscano) office. The pt is being treated for sepsis, acute cholecystitis and aspiration pneumoinia. She has an ostomy, supra pubic catha and a peg tube. Her spouse gives her issosource 2x daily per the peg to supplement her oral intake. Her power chair is serviced through [email or web address]. Dc plan at this time is to return home with HH services. Will followup with Dr. Toscano's office and [facility] regarding a mahamed lift. Support provided.
[2018-10-15] MEDS ORDERED: DAKIN'S473 M2 TOP (15:20)
[2018-10-15] MEDS ORDERED: SANTYL OINTMENT30 G1 TOP (15:21)
[2018-10-15] MEDS ORDERED: CLOTRIMAZOLE-BE15 GM TOP (15:21)
--- NOTE | 2018-10-15 18:59 | NUR ---
PT ALERT AND ORIENTED TIMES ONE SELF ONLY. ST ON TELE, LEVOPHED FOR BP SUPPORT, 96% 6L. RIGH UPPER OUAD DRAIN TO DD, PEG TUBE WITH SOME DRAINAGE. PT DENIES PAIN/SOA. PT TURNED FREQUENTLY THIS SHIFT. AT BEDSIDE. WILL CONTINUE TO MONITOR.
[2018-10-16] VITALS (88 sets, daily range): BP systolic 85–245; BP diastolic 36–213
[2018-10-16 06:18] LABS: HEMOGLOBIN 7.9 gm/dL (12.0-15.0); MCH 24.9 pg (26.0-34.0); MCHC 31.7 g/dL (28.0-37.0); MCV 78.6 fL (80.0-100.0); PLATELET COUNT 296 thou/uL (150-400); RBC 3.18 mil/uL (4.20-5.00); RDW 17.8 % (10.5-14.5); WBC 20.5 thou/uL (4.0-11.0)
--- NOTE | 2018-10-16 06:22 | NUR ---
DROWSY DURING THE SHIFT, CONFUSED. AOX1, FOLLOW SOME SIMPLE COMMANDS. DENIES PAIN. AFEBRILE. ON LEVOPHED AT 2 MCGS CURRENTLY FOR BP SUPPORT. ON 6L NC, NO APPARENT DISTRESS AT REST. SURPAPUBIC CATH DRAINING TO MAST BAG, URINE DRAINING FROM OPENING WELL. PEG IN PLACE, BROWNISH/GREENISH DRAINAGE FROM AROUND THE PEG SITE. COLOSTOMY OUTPUT NOTED. BILI DRAIN IN PLACE, OUTPUT NOTED. WOUND CARE PERFROMED ON LEFT BUTTOCK WOUND. FREQUENT TURNS AND ORAL CARE. NO COMPLAINS PRESENTLY. PT SLOWLY PROGRESSING TOWARDS GOALS WILL CONTINUE TO MONITOR
[2018-10-16 06:29] LABS: ALBUMIN 1.6 g/dL (3.4-5.0); CALCIUM 7.2 mg/dL (8.5-10.1); PHOSPHORUS 1.8 mg/dL (2.5-4.9)
[2018-10-16 06:31] LABS: POTASSIUM 2.6 mmol/L (3.5-5.1)
[2018-10-16 06:51] LABS: ABSOLUTE NEUTROPHILS 18.2 thou/uL (1.4-8.2); NUCLEATED RBCS 1 /100WBC
[2018-10-16 06:53] LABS: ANISOCYTOSIS 1+; TOXIC GRANULATION 1+
--- NOTE | 2018-10-16 09:05 | NUR ---
WOUND CONSULT: PT. WAS SEEN ON 10/15/[address] SAUNDERS AND MYSELF. PT. IS WELL KNOWN TO THE WOUND CARE TEAM. PT. HAS A HEALING STAGE 4 PRESSURE ULCER TO HER LEFT ISCHIAL TUBEROSITY ALONG WITH A STAGE 3 PRESSURE ULCER TO HER COCCYX AND AN UNSTAGABLE PRESSURE ULCER TO HER LEFT LATERAL ANKLE. ALL WOUNDS ARE FREE OF ANY SIGNS OR SYMPTOMS OF INFECTION AT THIS TIME. RECOMMENDATIONS: WOUND CARE TO COCCYX AND LEFT LATERAL ANKLE: GENTLY CLEANSE WITH WOUND CLEANSER OR NORMAL SALINE, COVER WITH OPTIFOAM BORDER, COMPLETE CARES DAILY AND PRN SOILAGE. WOUND CARE TO LEFT ISCHIAL TUBEROISTY: GENTLY CLEANSE AREA WITH WOUND CLEANSER OR NORMAL SALINE, PACK WITH DAKIN MOIST KERLIX, COVER WITH ABD, SECURE WITH TAPE, COMPLETE CARES DAILY. TURN Q2 HOURS KEEP PT. OFF WOUNDS MUCH POSSIBLE KEEP ON TRIPP MATRESS. PT. AND STAFF NURSE WERE INSTRUCTED ON PLAN OF CARE.
--- NOTE | 2018-10-16 13:28 | HC ---
[facility] [place] [address] [place] [address] CONSULTATION Name: HELDER CORDOVA Room #: 237-P ADM IN M.R.#: [id number] Admission: 10/14/18 Attend Phys: Vincent Mixon Discharge: Date of : 54 Report #: [id number] THIS REPORT FOR: //name// CC: Job Taylor DATE OF SERVICE: 10/15/2018 REASON FOR CONSULTATION: Evaluation of septic shock. 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 She has completed a prolonged course of IV antibiotic therapy followed by oral antibiotic therapy. She has been off antibiotics now for approximately 6 weeks. Previously, was on Augmentin. Toward the end of her treatment course, she had elevated liver function test. Imaging studies of her liver showed some gallstones, but no evidence of active cholecystitis. It was thought that the liver function tests may have been caused by her Augmentin, therefore it was discontinued. Liver function test improved and overall was feeling well until yesterday was called by the patient's with prolonged episodes of abdominal pain, nausea and vomiting. Recommended presentation to the Emergency Room for further evaluation. Here, she was found to have a temperature of 99.4 degrees. Imaging studies showed evidence of acute cholecystitis. Liver function tests were markedly abnormal. She was placed on IV antibiotic therapy. A percutaneous cholecystostomy tube was placed. Transferred to the Intensive Care Unit. Receiving IV fluids and vasopressors. The patient remains alert yet confused. She is on 6 liters of oxygen per nasal cannula. Continues to have abdominal discomfort, although better than yesterday. No further vomiting. Her gastrostomy tube has been put to suction. She has had purulent fluid out of her gallbladder drain. She has had reasonable urine output. No change in her sacral and ischial decubiti. She has had no cough or sputum production. No chest pain. No seizure activity. No change in her quadriplegia from her MS. There has been some drainage from her PEG tube. She has a suprapubic catheter that has been functioning well. REVIEW OF SYSTEMS: A 10-point review of systems was negative other than what is described above. ALLERGIES: TAPE. MEDICATIONS: As noted on her MAR including vancomycin and Zosyn. PAST MEDICAL HISTORY: MS, bladder stone, suprapubic catheter, tonsillectomy, [facility] [address] [place] [address] CONSULTATION Name: HELDER CORDOVA Room #: 237-P [facility]#: [id number] Admission: 10/14/18 Attend Phys: Vincent Mixon Discharge: Date of : 54 Report #: [id number] hypertension, depression, hypothyroidism, left leg fracture with ORIF. She had a wound associated with this, which has subsequently closed. Still has nonunion of her fracture. Underlying seizure disorder, urinary tract infections and decubiti as noted. She has had previous aspiration pneumonia. FAMILY HISTORY: Noncontributory. SOCIAL HISTORY: She is a past smoker, no significant alcohol intake. PHYSICAL EXAMINATION: GENERAL: She was awake and conversant. She was very weak as she has been in the past. VITAL SIGNS: Temperature 98.6 with maximum temperature 99.4, pulse 119, blood pressure 109/50, respiratory rate 17 on 6 liters of oxygen per nasal cannula. She is on 15 mcg of Levophed. SKIN: Without rash. She had decubitus to her sacrum and to her left ischium, which were packed. No rashes otherwise. No palpable adenopathy. NECK: Supple. HEENT: Eyes without conjunctivitis or scleral icterus. Mouth without mucositis. LUNGS: Crackles in the bases bilaterally, more consolidated on the right. HEART: Regular, tachycardic without murmur, gallop or rub. ABDOMEN: Mildly distended. She had a right upper quadrant drain with bilious purulent fluid in the bag. Left upper abdominal gastrostomy tube had gastric secretions draining from around the tube. It was to suction. There was no fluctuance around the tubing. No other masses identified. She was mildly tender in the right upper quadrant. Suprapubic catheter site was without drainage or erythema. EXTREMITIES: Without clubbing or cyanosis. No peripheral edema. She had a healed wound over the lateral left lower leg from her previous ankle fracture. Cranial nerves intact. She had quadriplegia from her MS unchanged. LABORATORY STUDIES: Sodium 135, potassium 3, bicarbonate 20, creatinine 1.2, AST 276, ALT 303, alkaline phosphatase 1105, bilirubin 3.4 total, with direct 2.7. Lipase 609, lactate 2.7, down from 10 on admission, hemoglobin 7.9, white count 16.5 and platelet count 347,000 with 14% bands. Procalcitonin was 21. CT scan of the chest, abdomen and pelvis showed left lower lobe atelectasis with right lower lobe atelectasis, infiltrate, gallbladder wall thickening with no stone seen. Blood cultures showing gram-negative bacilli. Urinalysis with moderate bacteria and few wbc's. IMPRESSION: Acute cholecystitis with septic shock, gram-negative bacteremia associated with this. Has aspiration right lower lobe pneumonia, sacral and ischial decubitus with left ischial osteomyelitis, chronic longstanding after antibiotic treatment. Multiple sclerosis with quadriplegia, anemia, previous left ankle fracture, lactic acidosis. [facility] [address] [place] [address] CONSULTATION Name: HELDER CORDOVA Room #: 237-P ADM IN M.R.#: [id number] Admission: 10/14/18 Attend Phys: Vincent Mixon Discharge: Date of : 54 Report #: [id number] RECOMMENDATION: We will continue full ICU support for sepsis with IV antibiotic therapy, pending final cultures. Surgical evaluation. Continue wound care and offloading. Follow up laboratory studies. Discussed with nursing staff and patient's family at the bedside. <ELECTRONICALLY SIGNED> By: Job Pack MD 10/16/18 1328 [id number] Job Pack MD /nt
--- NOTE | 2018-10-16 14:12 | NUR ---
DCP FAXED SCRIPT FROM DR. Shen CALLE (NEUROLOGY) FOR SNEHA LIFT TO [facility]. SPOKE WITH BHUMI IN CUSTOMER SERVICE AND HE REVIEWED PT'S INSURANCE AND HE CAN PROBABLY BE ABLE TO SUPPLY PT. WITH SNEHA LIFT. DCP TO F/U WITH [facility] CLOSER TO TIME OF DISCHARGE SO THEY CAN DELIVER LIFT TO PT'S HOME. DCP TO FOLLOW.
--- NOTE | 2018-10-16 14:28 | NUR ---
WOUND FOLLOW UP: PT. WAS SEEN TODAY BY DR. SAUNDERS AND MYSELF. PT. WOUNDS ARE ALL STABLE AT THIS TIME. RECOMMENDATIONS: CONTINUE WITH CURRENT PLAN OF CARE. PT. AND STAFF NURSE WERE INSTRUCTED ON PLAN OF CARE.
--- NOTE | 2018-10-16 17:01 | HC ---
[facility] [address] [place] [address] CONSULTATION Name: HELDER CORDOVA Room #: 237-P ADM IN M.R.#: [id number] Admission: 10/14/18 Attend Phys: Vincent Mixon Discharge: Date of : 54 Report #: [id number] THIS REPORT FOR: //name// CC: Job Vann Brandon TYPE OF REPORT: Pulmonary consultation. REFERRING PHYSICIAN: Vincent Mixon M.D. REASON FOR REFERRAL: Sepsis. HISTORY OF PRESENT ILLNESS: The patient is a 68-year-old white female with long history of multiple scleroses, presents to the Emergency Room with abdominal pain, nausea and vomiting. She was felt to have acute cholecystitis along with sepsis. The patient was admitted. Pulmonary Critical Care consultation was requested. The patient was diagnosed with multiple scleroses 40 years ago. She has been cared for by Dr. Bairon Toscano. Over the years, the patient has become progressively weak. Over the last several years, she has been primarily bedridden, wheelchair bound. She gets a total care from her . takes care of the patient at home. She has done fairly well, not requiring recurrent hospitalization until recently when she fell, sustaining injuries. Otherwise, she has had relatively few respiratory complications in the past. She was in her usual state of health until past day or so and she started to develop abdominal pain, nausea, vomiting along with febrile illness. She was felt to have acute cholecystitis. A percutaneous biliary drain was placed overnight. Presently, she is resting. She does not verbalize. She does not appear to be in distress. PAST MEDICAL HISTORY: As mentioned above including long history of multiple scleroses, wheelchair bound for the last several years, aphasic, history of recurrent UTIs, history of nephrolithiasis, status post baclofen pump placement for muscle spasms, status post suprapubic catheter placement, hypertension, depression, hypothyroidism and seizure disorder. PAST SURGICAL HISTORY: As mentioned above, status post PEG tube placement, left hip fracture, left ankle fracture repair in May 2018, history of a left heel pressure ulcer, tonsillectomy as a child and status post suprapubic catheter placement along with a baclofen pump placement. [facility] [address] [place] [address] CONSULTATION Name: HELDER CORDOVA Room #: 237-P [facility] IN M.R.#: [id number] Admission: 10/14/18 Attend Phys: Vincent Mixon Discharge: Date of : 54 Report #: [id number] ALLERGIES: TAPE. HOME MEDICATIONS: Medication list reviewed and this includes Effexor, Keppra, Lioresal, Tylenol, Benadryl, losartan, Synthroid, Aldactone, Aricept, Zocor and Diflucan. FAMILY HISTORY: Noncontributory. SOCIAL HISTORY: The patient has smoked in the past but quit many years ago. No alcohol history. REVIEW OF SYSTEMS: As mentioned above, predominantly wheelchair bound over the last several years. She requires total care. Otherwise, 10-point system review negative. PHYSICAL EXAMINATION: GENERAL: She is awake and alert, in no apparent distress. VITAL SIGNS: Temperature is 98.6 degrees Fahrenheit, pulse 110, respiratory rate is 20, blood pressure is 110/50 mmHg and saturation 93%. HEENT: Normocephalic and atraumatic. NECK: Supple, without any lymphadenopathy or thyromegaly. CHEST: Breath sounds are fair due to poor effort. Few scattered crackles in the right lung field. No wheezes. CARDIOVASCULAR: Normal S1 and S2. No murmurs or gallop. There is no JVD. There is no carotid bruit. Pulses are 2+/4+ bilaterally. ABDOMEN: Soft and nontender. No organomegaly or masses felt. GENITOURINARY: Deferred. RECTAL: Deferred. EXTREMITIES: There is no edema, cyanosis or clubbing. MUSCULOSKELETAL: Notable for moderate muscle atrophy. RADIOLOGICAL DATA: Portable chest x-ray shows poor technique, atelectasis and/or infiltrate in the right lung field. CT chest reviewed showing patchy infiltrates in the right lower lobe. CT abdomen and pelvis revealed acute cholecystitis, enlarged gallbladder, diffuse wall thickening involving the gallbladder, otherwise no other acute findings. LABORATORY DATA: Lactic acid is 10.0. Sodium 135, potassium 3.0, chloride 100, CO2 is 20, BUN is 25 and creatinine is 1.2. Liver enzymes are mildly elevated. WBC is 16,500; hemoglobin 7.5 and platelets are normal. Albumin 2.4. IMPRESSION: 1. Acute cholecystitis, severe sepsis status post percutaneous biliary drain. 2. Right-sided infiltrates, probable aspiration pneumonia. 3. Long history of multiple scleroses with progressive weakness, debility. [facility] [address] [place] [address] CONSULTATION Name: HELDER CORDOVA Room #: [address] [place] [address] IN M.R.#: [id number] Admission: 10/14/18 Attend Phys: Vincent Mixon Discharge: Date of : 54 Report #: [id number] 4. Chronic sacral wound, stage 4. 5. Elevated liver enzymes, suspect due to sepsis. 6. History of seizure disorder. 7. Hypertension. 8. Hypothyroidism. 9. History of depression. 10. Status post colostomy, percutaneous endoscopic gastrostomy tube placement. 11. Severe protein-calorie malnutrition, albumin 2.4. 12. Anemia, hypochromic, microcytic. 13. Acute hypoxic respiratory failure due to severe sepsis, possible pneumonia. RECOMMENDATIONS: Agree with sepsis protocol, IV fluids, broad-spectrum antibiotics, maintain systolic blood pressure greater than 90 or mean arterial pressure greater than 60. Monitor urine output closely. Follow hemoglobin closely. We will need to follow up liver enzymes. DVT and GI prophylaxis recommended. MEDICAL DIRECTIVE: The patient is a full code blue for now. Discussed the above findings with the patient's . He voices understanding. Thank you for this consultation. <ELECTRONICALLY SIGNED> By: Barney Moore MD 10/16/18 1701 [id number] Barney Moore MD /nt
--- NOTE | 2018-10-16 17:24 | NUR ---
PT REQUIRING BIPAP EARLY ON IN SHIFT - ATTEMPTS TO REMOVE PRESENTED /C DESATURATION - REMAINS ON LEVOPHED FOR BP SUPPORT - PT MADE A DNR TODAY - EDUCATED BY THAT PROBABILITY IS HIGH THAT PT WOULD MOST LIKELY BE VENT DEPENDANT IF INTUBATED - STATED SHE WOULD NOT WANT THAT - PT REMAINS ABLE TO VERBALLY COMMUNICATE TO SOME DEGREE AND ABLE TO EXPRESS DISCOMFORTS
[2018-10-17] VITALS (44 sets, daily range): BP systolic 55–152; BP diastolic 15–117
[2018-10-17 04:45] LABS: HEMATOCRIT 24.4 % (37.0-47.0); HEMOGLOBIN 7.8 gm/dL (12.0-15.0); MCH 25.3 pg (26.0-34.0); MCHC 31.8 g/dL (28.0-37.0); MCV 79.5 fL (80.0-100.0); PLATELET COUNT 246 thou/uL (150-400); RBC 3.07 mil/uL (4.20-5.00); RDW 17.7 % (10.5-14.5); WBC 26.5 thou/uL (4.0-11.0)
[2018-10-17 05:07] LABS: CALCIUM 7.7 mg/dL (8.5-10.1); CREATININE 0.8 mg/dL (0.6-1.0); POTASSIUM 3.4 mmol/L (3.5-5.1)
--- NOTE | 2018-10-17 06:24 | NUR ---
AOX1, CONFUSED. DROWSY. NO APPARENT PAIN. AFEBRILE. OFF LEVOPHED, BP STABLE. ON BIPAP, SATS ABOVE 90%. ELECTROLYTES REPLACEMENT. DRAINAGE LEAKING AROUND PEG SITE. URINE LEAKING AROUND SUPRAPUBIC CATH. OUTPUT NOTED. TALKED TO SPOUSE BALTAZAR, BALTAZAR STATED PT SAID "I WANT TO ." TALKED TO FRAME WIRER GUADALUPE, CONSULT PLACED IN FOR DR. GARCIA. FREQUENT TURNS. WILL CONTINUE TO MONITOR.
[2018-10-17 06:52] LABS: ABSOLUTE NEUTROPHILS 25.4 thou/uL (1.4-8.2)
[2018-10-17 06:53] LABS: ANISOCYTOSIS SLIGHT
--- NOTE | 2018-10-17 10:28 | HC ---
[facility] [address] [address] CONSULTATION Name: HELDER CORDOVA Room #: 237-P ADM IN M.R.#: [id number] Admission: 10/14/18 Attend Phys: Vincent Mixon Discharge: Date of : 54 Report #: [id number] THIS REPORT FOR: //name// CC: Job Vann Brandon DATE OF SERVICE: 10/15/2018 REFERRING PROVIDER: Dr. Mixon. REASON FOR CONSULT: Severe acute cholecystitis. HISTORY OF PRESENT ILLNESS: The patient is a 68-year-old female who presented to the Emergency Room complaining of severe generalized abdominal pain, nausea and vomiting with inability to tolerate p.o. intake. The patient has had febrile episodes and has had mental status changes. Workup in the Emergency Room in the form of laboratories and a CT scan of the abdomen and pelvis were performed. The patient's labs showed a leukocytosis with a lactic acidosis up to 10.1. Her urinalysis shows urinary tract infection and her CT scan of the chest, abdomen and pelvis shows severe acute cholecystitis with large distended, diffuse wall thickening up to a centimeter. The patient is hypotensive, tachycardic and appears to be in early sepsis and as such has been admitted to Intensive Care Unit. I was contacted about the patient several hours ago and I ordered emergent percutaneous cholecystostomy tube placement, which was performed with significant improvement in the patient's hemodynamic status. Currently, the patient is resting in the ICU and appears comfortable. PAST MEDICAL HISTORY: Sacral decubitus wound, status post colostomy with prolapse, paralysis, seizure disorder, aspiration pneumonia, multiple sclerosis, urinary tract infections, suprapubic catheter, hypertension, depression, hypothyroidism. HOME MEDICATIONS: Effexor, Keppra, baclofen, Tylenol, Benadryl, losartan, Synthroid, Aldactone, Aricept, Zocor and Diflucan. ALLERGIES: TAPE, WHICH CAUSES BLISTERS. SOCIAL HISTORY: The patient does not currently use tobacco, alcohol or illicit drugs. FAMILY HISTORY: Reviewed and noncontributory. REVIEW OF SYSTEMS: GENERAL: The patient denies chills; however, did have a nocturnal fever yesterday. [facility] [address] [address] CONSULTATION Name: HELDER CORDOVA Room #: [facility] IN M.R.#: [id number] Admission: 10/14/18 Attend Phys: Vincent Mixon Discharge: Date of : 54 Report #: [id number] HEENT: No change in vision, change in hearing. NECK: No swelling or difficulty swallowing. HEART: No chest pain or palpitations. LUNGS: No cough, shortness of breath. ABDOMEN: Abdominal pain, nausea and vomiting. GENITOURINARY: No dysuria or hematuria. ENDOCRINE: No polyuria, polydipsia. HEMATOLOGIC: No history of bleeding or easy bruising. EXTREMITIES: History of paralysis and limited range of motion. NEUROLOGIC: History of paralysis and generalized debility. HEMATOLOGIC: No history of bleeding or easy bruising. SKIN AND INTEGUMENT: Significant history of sacral decubitus wound. PHYSICAL EXAMINATION: VITAL SIGNS: Temperature 98.6, pulse 114, respirations 16, blood pressure 106/60. GENERAL: Chronically ill appearing, in no distress. HEENT: Normocephalic, atraumatic. Pupils equal, round, reactive to light. NECK: Supple, without lymphadenopathy. Trachea midline. HEART: Tachycardic, but regular rhythm. LUNGS: Clear to auscultation bilaterally. ABDOMEN: Soft, nondistended. She has minimal tenderness to palpation in the right upper quadrant around a percutaneous cholecystostomy tube. PEG tube is in place in left upper quadrant. Ostomy is pink, patent and functional. Suprapubic catheter is in place. GENITOURINARY: Normal external female genitalia. EXTREMITIES: No clubbing, cyanosis or edema. NEUROLOGIC: Cranial nerves 2-12 are grossly intact. PSYCHIATRIC: Normal mood and affect. SKIN AND INTEGUMENT: No current abnormal lesions or wounds. LABORATORY AND X-RAY DATA: CBC shows white blood cell count of 16.5 thousand, hemoglobin 7.9, platelets 347,000. Creatinine 1.3. Liver function enzymes from yesterday showed a bilirubin of 3.4 with markedly elevated transaminases and alkaline phosphatase. Lactate is down from 10.1 to [address] scan of abdomen and pelvis as per HPI. ASSESSMENT AND PLAN: A 68-year-old female with severe acute cholecystitis, now status post percutaneous cholecystostomy tube placement. The patient appears to be improving with a lactic acidosis that is correcting with IV fluid rehydration, antibiotics and drainage of her cholecystitis. Percutaneous cholecystostomy tube should remain open to drainage with antibiotics as appropriate, and I would keep the patient n.p.o. for now. [address] [address] CONSULTATION Name: HELDER CORDOVA Room #: 237-P ADM IN M.R.#: [id number] Admission: 10/14/18 Attend Phys: Vincent Mixon Discharge: Date of : 54 Report #: [id number] I sincerely appreciate this consult. We will follow along and leave any further recommendations in the patient's chart as appropriate. <ELECTRONICALLY SIGNED> By: Edwar Taylor MD, FACS 10/17/18 1028 0938 [id number] Edwar Taylor MD, FACS /nt
--- NOTE | 2018-10-17 10:36 | HC ---
[facility] [place] [address] CONSULTATION Name: HELDER CORDOVA Room #: 237-P ADM IN M.R.#: [id number] Admission: 10/14/18 Attend Phys: Vincent Mixon Discharge: Date of : 54 Report #: [id number] THIS REPORT FOR: //name// CC: Job Vann Brandon DATE OF SERVICE: 10/15/2018 CHIEF COMPLAINT: Sepsis and multiple pressure ulcerations. HISTORY OF PRESENT ILLNESS: This is a 68-year-old white female patient with whom I am familiar from multiple hospitalizations as well as previous visits to [facility]. The patient has a history of generalized debility and multiple pressure ulcerations due to her mobility related to multiple sclerosis. She, however, is admitted with acute cholecystitis, had a percutaneous drain placed. She is in the Intensive Care Unit. She is a bit confused. Her is at the bedside. I have been asked to see her for ongoing wound care. PAST MEDICAL HISTORY: Positive for history of multiple sclerosis, stage 3 pressure ulceration to her sacrum and stage 4 pressure ulceration to her left ischium, history of bladder stone. She has an implanted baclofen pump for spasm. She has a suprapubic catheter, hypertension, depression, hypothyroidism, diverting colostomy and PEG tube. SOCIAL HISTORY: The patient is a former smoker. No history of the drug use or alcohol use. FAMILY HISTORY: Noncontributory. REVIEW OF SYSTEMS: Not obtainable due to her acute illness at this time. PHYSICAL EXAMINATION: VITAL SIGNS: Include temperature 97.9, pulse 119, respiratory rate 17, blood pressure 109/50. GENERAL: This is a chronically ill-appearing female patient who appears to be in minimal distress. HEENT: Head is normocephalic. NECK: Supple. LUNGS: Coarse. HEART: Tachycardic. ABDOMEN: Soft, nontender. Colostomy appears to be functioning. PEG tube shows some bilious drainage around the site. She has a drainage catheter in the right upper quadrant with bilious drainage noted as well. PELVIC: Pelvic region demonstrates stage 4 pressure ulcer in the left ischial tuberosity with some undermining. We are close to bone. It is palpable, but it [facility] [address] [place] [address] CONSULTATION Name: HELDER CORDOVA Room #: 237-[facility] IN M.R.#: [id number] Admission: 10/14/18 Attend Phys: Vincent Mixon Discharge: Date of : 54 Report #: [id number] is not sharp at this time. She has a stage 3 coccygeal pressure ulcer that is relatively clean, very small, but an unstageable pressure ulcer to the left lateral ankle. CLINICAL IMPRESSION: 1. Stage 4 pressure ulcer to left ischial tuberosity. 2. Stage 2 pressure ulcer on the coccyx. 3. Unstageable pressure ulcer in left lateral ankle. 4. Acute cholecystitis, status post percutaneous drain placement. 5. Status post diverting colostomy and PEG tube. RECOMMENDATIONS: At this point in time, we will do simple dressings to the coccygeal and ischial pressure ulcerations with quarter strength Dakin's moist gauze, to be changed daily. Recommend bordered foam to be applied to the left ankle. She will need a low air loss mattress, q. 2 hour turning and positioning, nutritional support. We will continue her current medications. We recommend PRAFO boots to the lower extremities. The patient's at the bedside. All questions have been answered. I appreciate being asked to see her in consultation. <ELECTRONICALLY SIGNED> By: Arvind Rosa MD 10/17/18 1036 [id number] Arvind Rosa MD /nt
--- NOTE | 2018-10-17 12:12 | NUR ---
DR. GARCIA PRESENT THIS AM TO SPEAK WITH THE PT AND HER . PT DOES NOT WANT TO KEEP THE BIPAP ON, EVEN IF IT RESULTS IN HER IMMINENT . SHE WANTS TO BE COMFORTABLE AND DENIES PAIN AT THIS TIME. DR. CELESTE, DR. CHÁVEZ, DR. CHÁVEZ ALL PRESENT THIS AM.
--- NOTE | 2018-10-17 16:31 | NUR ---
WOUND FOLLOW UP: PT. WAS SEEN TODAY BY DR. SAUNDERS AND MYSELF. PT. AND HAVE DECIDED TO GO ON COMFORT CARE ONLY AT THIS TIME. RECOMMENDATIONS: CONTINUE WITH DRESSING CHANGES FOR COMFORT ONLY. PT. AND STAFF NURSE WERE INSTRUCTED ON PLAN OF CARE.
--- NOTE | 2018-10-17 19:15 | NUR ---
SHIFT SUMMARY: PT BRISKLY DESATS TO UPPER 70'S TO LOW 80'S WHEN BIPAP MASK REMOVED FOR BRIEF ORAL CARE. COMFORT MEASURES IMPLEMENTED, MORPHINE GIVEN, BIPAP REMOVED, PLACED ON 2L/NC FOR PT COMFORT. SPOUSE, CLOSE FRIENDS AND CLERGY PRESENT. RN PROVIDING SUPPORT. ATIVAN AND MORPHINE GIVEN FOR ELEVATED RESP RATE/AIR HUNGER WITH SYMPTOMS SLOWLY IMPROVING. PT UNRESPONSIVE TO VERBAL STIMULI, INTERMITTENT AUDIBLE RHONCHI, SA02 IN 70'S, ORALLY SUCTIONED, NPO.
[2018-10-18] VITALS (13 sets, daily range): BP systolic 71–98; BP diastolic 30–38
--- NOTE | 2018-10-18 07:33 | NUR ---
ASSUMED CARE OF PT AT 1900. PT ON COMFORT CARE, FAMILY AT BEDSIDE. PT NONRESPONSIVE OVERNIGHT. PT IN RESP DISTRESS AT THE BEGINNING OF THE NIGHT AND WAS GIVEN MULTIPLE DOSES OF MORPHINE. BREATHING LESS LABORED AND RATE DECREASED, BUT PT'S BREATHING STILL LABORED AND SOUNDING VERY COARSE WHEN INHALING. BP SOFT AND TACHY HR, BUT REMAINED CONSISTENT THROUGHOUT THE NIGHT. AT BEDSIDE OVERNIGHT. MORPHINE AND ATIVAN GIVEN PRN. WILL CONTINUE TO MONITOR.
--- NOTE | 2018-10-18 10:19 | HC ---
[facility] [place] [address] CONSULTATION Name: HELDER CORDOVA Room #: 237-P ADM IN M.R.#: [id number] Admission: 10/14/18 Attend Phys: Vincent Olmstead Discharge: Date of : 54 Report #: [id number] THIS REPORT FOR: //name// CC: Job Taylor DATE OF SERVICE: 10/16/2018 HISTORY OF PRESENT ILLNESS: This is a 68-year-old female patient who was evaluated by me for MS and seizure. The history is taken from the patient's . He indicated she was diagnosed with multiple sclerosis about 40 years ago. He indicates it is a progressive MS, but he does not know whether it is primary progressive or secondary progressive. She has a motorized wheelchair and she is dependent upon him to do all the activities. The patient has a PEG tube put in. She is admitted with respiratory difficulty and it looks like there is a lot of problem with tube for feeding and she also has respiratory problem. She has numerous problems like she has an implanted baclofen pump for spasm. She has a history of depression. She requires what looks like a total care. She had about 3 seizures, first one was in relation to taking stimulant as I understand, but she was ultimately put on Keppra and she is on 500 b.i.d. of Keppra and she has not had any seizure. She is on Aricept and I suspect her memory has been poor. REVIEW OF SYSTEMS: Mainly as described above, this patient has numerous systemic problems. Her arms move okay. She does have a vision. She can hear. She is having a lot of respiratory difficulties. She does have constitutional symptoms. There is no new dermatological symptom. PAST MEDICAL HISTORY: Positive for MS and she has her own neurologist. FAMILY HISTORY: Negative for any early age stroke. SOCIAL HISTORY: She is and the provided history. PHYSICAL EXAMINATION: Was difficult. She is alert. She can follow simple commands. She moves her eyes in multiple directions. She moves her upper extremities to command, but that is all the examination I can carry out. She is reasonably well-developed individual. Her blood pressure is 119/65, temperature is 98.8. LABORATORY DATA: Her white count is 20.5. Her potassium is only 2.6. IMPRESSION: [facility] [address] [place] [address] CONSULTATION Name: HELDER CORDOVA Room #: 237-[facility] IN M.R.#: [id number] Admission: 10/14/18 Attend Phys: Vincent Olmstead Discharge: Date of : 54 Report #: [id number] 1. Advanced multiple sclerosis. 2. History of seizures. RECOMMENDATIONS: Both of them appear to be reasonably stable. Her quality of life is poor, but has been like this for some time. I think the main management is going to be the management of the systemic problem. We will talk to the admitting doctor and may or may not do any CT scan sometime when she is stable. Addendum This addendum is being added at the time of signing the note. I had talked to Dr olmstead yesterday and seen his note. I discussed with him that in this circumstances I will sign off and please contact me in case the siutaion changes <ELECTRONICALLY SIGNED> By: Avni Bolanos MD 10/18/18 1019 [id number] 2044 Avni Bolanos MD /nt
--- NOTE | 2018-10-18 15:25 | NUR ---
SUMMARY: PATIENT WAS ON COMFORT MEASURES THIS MORNING. FAMILY AT THE BEDSIDE. PATIENT MEDICATED FOR AIR HUNGER WITH PRN MEDS. PATIENT ASYSTOLE ON THE MONITOR AT 12:30 CONFIRMED BY MYSELF AND RADHA ROSALES. PHYSICIANS NOTIFIED. UNABLE TO TAKE OFF W[place]ING BAND AND AWARE. BODY TAKEN TO THE MORGUE BY SECURITY.
== END 2018-10-18 12:30 | DRG 871 ==
LOC: ER 19:05 → EROBS 22:12 → ICU 22:12
PROVIDERS: Emergency Medicine; Internal Medicine; Nurse Practitioner Acute Care; ADMIT Hospitalist
PROC: B5181ZA Fluoroscopy of Superior Vena Cava using Low Osmolar Contrast, Guidance (ICD-10-PCS; principal; 2018-10-15)
PROC: 02HV33Z Insertion of Infusion Device into Superior Vena Cava, Percutaneous Approach (ICD-10-PCS; principal; 2018-10-15)
PROC: 0F9430Z Drainage of Gallbladder with Drainage Device, Percutaneous Approach (ICD-10-PCS; principal; 2018-10-15)
PROC: B548ZZA Ultrasonography of Superior Vena Cava, Guidance (ICD-10-PCS; principal; 2018-10-15)
PROC: 5A09357 Assistance with Respiratory Ventilation, Less than 24 Consecutive Hours, Continuous Positive Airway Pressure (ICD-10-PCS; 2018-10-16)
PROC: 5A09357 Assistance with Respiratory Ventilation, Less than 24 Consecutive Hours, Continuous Positive Airway Pressure (ICD-10-PCS; 2018-10-17)
DX: A41.50 Gram-negative sepsis, unspecified (principal); L89.324 Pressure ulcer of left buttock, stage 4; J69.0 Pneumonitis due to inhalation of food and vomit; R65.21 Severe sepsis with septic shock; G82.50 Quadriplegia, unspecified; E43 Unspecified severe protein-calorie malnutrition; J96.01 Acute respiratory failure with hypoxia; K81.0 Acute cholecystitis; M46.28 Osteomyelitis of vertebra, sacral and sacrococcygeal region; I10 Essential (primary) hypertension; F32.9 Major depressive disorder, single episode, unspecified; E03.9 Hypothyroidism, unspecified; G40.909 Epilepsy, unspecified, not intractable, without status epilepticus; G35 Multiple sclerosis; D50.9 Iron deficiency anemia, unspecified; L89.152 Pressure ulcer of sacral region, stage 2; L89.520 Pressure ulcer of left ankle, unstageable; E16.2 Hypoglycemia, unspecified; R74.0 Nonspecific elevation of levels of transaminase and lactic acid dehydrogenase [LDH]; E80.6 Other disorders of bilirubin metabolism; Z66 Do not resuscitate; Z51.5 Encounter for palliative care; Z93.1 Gastrostomy status; Z87.891 Personal history of nicotine dependence; Z93.3 Colostomy status; Z87.81 Personal history of (healed) traumatic fracture; Z87.442 Personal history of urinary calculi; Z68.25 Body mass index [BMI] 25.0-25.9, adult; Z91.048 Other nonmedicinal substance allergy status
CPT/HCPCS: 10078